=== PATIENT | male | born 1965 | race Caucasian/White ===

== ENCOUNTER 2016-06-14 11:55 | Emergency (ER) | payer BC ==
[~2016-06-14] VITALS: Ht 170.2 cm; Wt 85.0 kg
[~2016-06-14 11:55] MED LIST: LISI-360 PO; MVI PO; THIA100T PO
[2016-06-14 11:57] VITALS: BP 174/117; PULSE 118; RESP 20; TEMP 97.8; O2SAT 97
[2016-06-14 12:23] VITALS: O2SAT 97
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
[2016-06-14 12:53] VITALS: BP 177/109; PULSE 112; RESP 20; O2SAT 97
[2016-06-14] MEDS ORDERED: PROPOFOL 200 MG/20 ML AMP IV ONE ×2 (13:00→13:45)
[2016-06-14 13:20] VITALS: O2SAT 98
[2016-06-14 13:29] VITALS: BP 206/113; PULSE 112; RESP 20; O2SAT 100
--- NOTE | 2016-06-14 13:35 | RADRPT ---
EXAM DATE/TIME: 06/14/2016 13:27 [facility] COMPARISON: SHOULDER LEFT LTD (2VWS), June 14, 2016, 12:25. INDICATIONS : Post reduction left shoulder MEDICAL HISTORY : None. SURGICAL HISTORY : None. ENCOUNTER: Subsequent ACUITY: 2 days PAIN SCORE: 6/10 LOCATION: Left Shoulder FINDINGS: Single frontal view of the left shoulder following reduction demonstrates normal orientation of the h umeral head to the glenoid fossa on this frontal view. There is a comminuted fracture of the greater tuberosity. Chronic ventricular joint is intact. CONCLUSION: 1. Based on this single frontal view the humeral head dislocation has been reduced. 2. Mildly comminuted and displaced fracture of the greater tuberosity of the humerus. Fco Gong MD on June 14, 2016 at 13:33 Board Certified Radiologist. This report was verified electronically.
[2016-07-08] MEDS ORDERED: HYDR-3366 PO (11:38)
== END 2016-06-14 14:39 | disposition home or self-care (01) ==
LOC: NEPE 11:55
DX: S42.92XA Fracture of left shoulder girdle, part unspecified, initial encounter for closed fracture (principal); S43.005A Unspecified dislocation of left shoulder joint, initial encounter; V19.9XXA Pedal cyclist (driver) (passenger) injured in unspecified traffic accident, initial encounter; Y93.55 Activity, bike riding
CPT/HCPCS: 23650; 29240; 73020; 73030; 99152

== ENCOUNTER → 2016-07-08 | Day surgery (SDC) | payer BC ==
[~2016-07-08] VITALS: Ht 165.1 cm; Wt 86.4 kg
[~2016-07-08] MED LIST changes: +*ENALAPRILAT 1.25 MG/ML VIAL PERIprocedural Use ONLY ONE; +*HYDROmorphone PF 1 MG VIAL PERIprocedural Use ONLY ONE; +*LABETALOL HCL 100 MG/20 ML VIAL PERIprocedural Use ONLY ONE; +*MEPERIDINE 25 MG INJ VIAL PERIprocedural Use ONLY ONE; +*morphine SULFATE 8 MG/ML PERIprocedure ONLY ONE; +ACETAMINOPHEN 1000 MG/100 ML VIAL IV ONE; +ACETAMINOPHEN/HYDROcodone 325 MG/10 MG TAB PO PRN; +BUPIVACAINE/EPINEPHRINE 0.25% 50 ML VIAL INFIL ONE; +CHLORHEXIDINE GLUCONATE 4% SOLN 120 ML BTL TOPICAL SCH; +DO NOT ADM ANY ANTICOAGULANT DRUGS XX PRN; +DOCUSATE SODIUM 50 MG/SENNA 8.6 MG TAB PO SCH; +GENTAMICIN SULFATE 80 MG/2 ML VIAL ONE; +HYDR-3366 PO; +INSULIN HUMAN REGULAR 1,000 UNITS/10 ML VIAL SQ PRN; +LACTATED RINGER'S 1000 ML INJ 1,000 ML ONE; +LACTATED RINGER'S 1000 ML IV SCH; -LISI-360 PO; +METOPROLOL TARTRATE 25 MG TAB PO PRN; +MIDAZOLAM HCL 2 MG/2 ML VIAL ONE; +MORPHINE SULFATE 4 MG/ML INJ IV PUSH PRN; -MVI PO; +NEOSTIGMINE 3 MG/3 ML SYR IV ONE; +ONDANSETRON HCL 4 MG/2 ML VIAL IV PUSH ONE; +ONDANSETRON HCL 4 MG/2 ML VIAL IVP PRN; +PROPOFOL 200 MG/20 ML AMP IV ONE; +SODIUM CHLOR 0.9% 250 ML INJ 250 ML ONE; +SODIUM CHLORID 0.9% 500 ML IV SCH; +SODIUM CHLORIDE 0.9% FLUSH 5 ML FLUSH IVF PRN; +SODIUM CHLORIDE 0.9% FLUSH 5 ML FLUSH IVF SCH; -THIA100T PO; +VANCOMYCIN 1000 MG/NS 250 ML (for <70 kg) IV SCH; +VANCOMYCIN HCL 1000 MG VIAL ONE; +ceFAZolin 2 GM PREMIX 50 ML IV SCH; +ceFAZolin INJ 1,000 MG VIAL ONE; +diphenhydrAMINE HCL 25 MG CAP PO PRN; +fentaNYL CITRATE 250 MCG/5 ML AMP ONE
[2016-07-08 09:07] VITALS: BP 192/111; PULSE 95; RESP 20; TEMP 97.9; O2SAT 96
--- NOTE | 2016-07-08 11:41 | PD.OP ---
cc: Nathan Shepard MD Operative Report Date of Surgery: Jul 08, 2016 Preoperative Diagnosis: Left shoulder greater tuberosity fracture Postoperative Diagnosis: Same Procedure: Open reduction internal fixation left shoulder greater tuberosity fracture Anesthesia: Gen. Surgeon: Nathan Shepard Professor Of Fine Art(s): CAPRI Manzanares PA-C The surgical procedure was assisted by my physician assistant executive housekeeper. My P.A. presence was necessary throughout this case for the manipulation and positioning of the surgical extremity. My P.A. was assisting me throughout the duration of this procedure. The skill set of a physician assistant executive housekeeper was medically necessary to complete this procedure. During the surgical case the rn neurosurgical was working at the back table and the physician assistant executive housekeeper was directly assisting me. Operation and Findings: Patient was seen and evaluated preoperatively. Patient was found to have a displaced proximal humerus greater tuberosity fracture from previous shoulder dislocation. This injury was 4 weeks ago.. The risks and benefits of surgical and nonsurgical options were discussed in detail and informed consent was obtained for surgery. Patient was brought to the operating room and placed on or table. IV sedation and GETA were administered by anesthesiologist. Antibiotics were given prior to incision. Operative arm and shoulder were prepped with alcohol followed by Hibiclens and draped usual sterile fashion. Timeout procedure was performed. Procedure began with a 3 inch incision over the lateral shoulder. Deltoid muscle was split in line with fibers. Care was taken to avoid injury to the axillary nerve. The fracture was now visualized. Soft tissue was retracted. A #5 FiberWire suture was placed into the rotator rotator cuff and greater tuberosity. There was significant fracture callus formation. The fracture was mobilized using a small elevator. Attention was now turned to reduction. Gentle traction was applied. The greater tuberosity fragment was reduced to the humeral head. A fracture tenaculum was used to apply compression.. Fracture was manipulated to achieve excellent reduction. Multiplanar fluoroscopy confirmed well aligned fracture. Multiple K wires were used to hold provisional fixation. A Synthes 3-hole spring plate was selected. Plate was provisionally held in place K wires. 3.5 cortical screws were used to compress plate to bone. Fluoroscopy confirmed appropriate plate placement and fracture reduction. An additional 4.0 cancellus screw was placed outside of the plate. Screws were predrilled and premeasured for appropriate length. Care was taken not to penetrate the articular surface. The FiberWire suture was around the distal end of the plate and sutured to the plate for additional stability. Final fluoroscopy revealed well aligned fracture with well-placed hardware. Wound was thoroughly irrigated. Fascia was closed with #1 Vicryl, subcutaneous tissues closed with 3-0 Vicryl, and skin was closed with chaka. Sterile dressings were applied. Patient was placed into a sling. Patient was awakened and transferred to recovery in stable condition. Needle and sponge counts were correct. Nathan Shepard MD Jul 08, 2016 11:41
[2016-07-08 13:40] VITALS: BP 156/89; PULSE 85; RESP 16; TEMP 99; O2SAT 97
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
== END | disposition home or self-care (01) ==
LOC: HSDC 07:47
PROVIDERS: ATTEND Orthopaedic Surgery Orthopaedic Trauma
DX: S42.252A Displaced fracture of greater tuberosity of left humerus, initial encounter for closed fracture (principal); V19.3XXA Pedal cyclist (driver) (passenger) injured in unspecified nontraffic accident, initial encounter
CPT/HCPCS: 01630; 23630; 73030; 76000; C1713; J0131; J0690; J1170; J1580; J2175; J2250; J2270; J2405; J2710; J3010; J3370; J7050; J7120